=== PATIENT | female | born 1945 ===

== ENCOUNTER → 2018-07-20 | Outpatient (CLI) | payer MEDICARE, BC ==
[~2018-07-20] MED LIST: CHOL10005 PO; OMEG-5; PNEU0.5D3 IM; ROSU10TA5 PO; VITA1CAP46 PO; VITA400T7 PO; [UNRECOGNIZED DRUG - CODE] PO
--- NOTE | 2018-07-20 15:53 | RADIOLOGY IMAGING REPORT ---
FACILITY: [facility] - [place] PATIENT NAME: Jessica Jacques : 1945 MR: [id number] V: [id number] EXAM DATE: ORDERING PHYSICIAN: YVONNE SWANSON TECHNOLOGIST: [place] [facility] [place] : 1945 Visit/Account:[id number] Date of Sevice: 07/20/2018 DEXA Scan Clinical history: Postmenopausal estrogen deficiency. Comparison: None available. LUMBAR SPINE: The bone mineral density (BMD) measured from L1-L4 correlates with a Z-score 0.8 and a T-score of -1. 1 which is osteopenia as defined by the World Health Organization. The corresponding risk of fractur e in the lumbar spine is 2-3 times increased compared with a young adult reference population. HIP: Bone mineral density (BMD) measured in the Left total hip region correlates with a Z-score 0.2 and a T-score of -1.5 which is osteopenia as defined by the World Health Organization. The corresponding r isk of fracture in the hip is 3 times increased compared with a young adult reference population. T score left femoral neck -1.4 Bone mineral density (BMD) measured in the Femoral Neck region measures 0.849 g/cm2. Impression: 1. Lumbar spine: Osteopenia. 2. Left Hip: Osteopenia. 3. Femoral Neck: Bone Mineral Density is 0.849 g/cm2 The next DEXA scan of this patient should include the following sites: L1-L4 and the left hip. FRAX? WHO Fracture Risk Assessment Tool link: <http://www.shef.ac.uk/FRAX/tool.jsp?locationValue=9> PLEASE NOTE: 1) The World Health Organization defines low BMD as follows: T-score Normal > -1 Osteopenia < -1 and > -2.5 Osteoporosis < -2.5 without fractures Established osteoporosis < -2.5 with fractures 2) In general, you may wish to consider: Diagnosis Treatment Follow-up DEXA Normal BMD Prevention 2-3 years Osteopenia Prevention/therapy 1-2 years Osteoporosis Therapy Yearly 3) Fracture risk estimated from the T-score is more accurate for vertebral fractures (often spontane ous) than for hip fractures. Report Dictated By: Priya Valdovinos MD at 07/20/2018 3:48 PM Report E-Signed By: Priya Valdovinos MD at 07/20/2018 3:49 PM WSN:[email or web address]
--- NOTE | 2018-07-21 10:14 | RADIOLOGY IMAGING REPORT ---
FACILITY: [facility] PATIENT NAME: NACHO ELLIS : [id number] MR: [id number] V: [id number] EXAM DATE: [id number] ORDERING PHYSICIAN: YVONNE SWANSON TECHNOLOGIST: Marta Bauman PROCEDURE:BILATERAL DIGITAL SCREENING MAMMOGRAM WITH CAD ASSISTED INTERPRETATION & 3D TOMOSYNTHESIS COMPARISON:None INDICATIONS:SCREENING FINDINGS: Scattered fibroglandular densities are seen in both breasts. There is no evidence of dominant mass, malignant appearing calcification or other secondary sign of malignancy in either breast. DIAGNOSTIC CATEGORY 1--NEGATIVE. RECOMMENDATIONS: ROUTINE MAMMOGRAM AND CLINICAL EVALUATION. IMPRESSION: BIRADS 1: Negative. No significant abnormality is seen. Dictated by: Priya Valdovinos M.D. on 07/20/2018 at 16:32 Transcribed by: CHITO on 07/21/2018 at 9:51 Approved by: Priya Valdovinos M.D. on 07/21/2018 at 10:14 [facility]
== END ==
LOC: MAMO 00:58
PROVIDERS: ATTEND Emergency Medicine
DX: Z12.31 Encounter for screening mammogram for malignant neoplasm of breast (principal); Z78.0 Asymptomatic menopausal state; M85.80 Other specified disorders of bone density and structure, unspecified site; Z80.3 Family history of malignant neoplasm of breast
CPT/HCPCS: 77063; 77067; 77080

== ENCOUNTER → 2018-08-16 | Outpatient (CLI) | payer MEDICARE, BC | LOC: LAB 13:21 | PROVIDERS: ATTEND Emergency Medicine | DX: D75.89 Other specified diseases of blood and blood-forming organs (principal); E78.5 Hyperlipidemia, unspecified; R73.09 Other abnormal glucose | CPT/HCPCS: 36415; 82465; 82746; 83036; 83718; 84478 ==

== ENCOUNTER → 2018-11-29 | Outpatient (CLI) | payer MEDICARE, BC | LOC: LAB 16:23 | PROVIDERS: ATTEND Emergency Medicine | DX: R73.03 Prediabetes (principal) | CPT/HCPCS: 36415; 83036 ==

== ENCOUNTER → 2019-02-28 | Outpatient (CLI) | payer MEDICARE, BC | LOC: LAB 08:41 | PROVIDERS: ATTEND Emergency Medicine | DX: R73.03 Prediabetes (principal) | CPT/HCPCS: 36415; 83036 ==

== ENCOUNTER → 2019-03-23 | Outpatient (CLI) | payer MEDICARE, BC ==
[2019-03-23 16:29] LABS: PLATELET COUNT, AUTOMATED 167 K/uL (150-450)
== END ==
LOC: LAB 15:54
PROVIDERS: ATTEND Emergency Medicine
DX: R17 Unspecified jaundice (principal)
CPT/HCPCS: 36415; 82040; 82247; 82310; 82374; 82435; 82565; 82947; 84075; 84132; 84155; 84295; 84450; 84460; 84520; 85025